=== PATIENT | male | born 1945 | race Caucasian/White ===

== ENCOUNTER 2016-06-09 11:54 | Emergency (ER) | payer OTHER ==
[2016-03-15 16:21] VITALS: Ht 172.7 cm; Wt 96.2 kg
[~2016-06-09] VITALS: Ht 172.7 cm; Wt 96.2 kg
[~2016-06-09 11:54] MED LIST: BENA20TA75 PO; CAR1 PO; CYCL-10 PO; DEXA4TAB PO; IBUP-1480 PO; LENA2.5C PO; LISI-209 PO; LISI10TA5 PO; PRO40 PO; WARF1TAB2 PO
[2016-06-09 12:00] VITALS: BP 123/71; PULSE 76; RESP 18; TEMP 98; O2SAT 99
--- NOTE | 2016-06-09 12:00 | NUR ---
Placed in room 07. Placed on monitoring specialist, blood pressure machine and pulse oximeter. To gown for exam. Side rails up. Report given to ABEL Londono.
--- NOTE | 2016-06-09 12:29 | NUR ---
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 no neuro-deficit noted.
[2016-06-09] MEDS ORDERED: ACETAMINOPHEN 500 MG TABLET PO ONE (12:30)
[2016-06-09] MEDS ORDERED: NACL 0.9% 1,000 ML IV ONE (12:30)
[2016-06-09] MEDS ORDERED: PROCHLORPERAZINE EDISYLATE 10 MG/2 ML VIAL IVP ONE (12:30)
--- NOTE | 2016-06-09 12:32 | NUR ---
# 20 gauge angiocath placed to . Use of asceptic technique. Opsite placed over site. Blood return noted. Blood for lab drawn from site. Flushed with 10 cc of normal saline. No evidence of infiltration noted. Patient tolerated well.
--- NOTE | 2016-06-09 12:34 | NUR ---
MEHREEN Monk at bedside examining patient.
--- NOTE | 2016-06-09 12:55 | NUR ---
medicated per MD's order, continue monitor.
[2016-06-09 13:15] LABS: BASOPHILS # (AUTO) 0.1 K/uL (0.0-0.2); BASOPHILS % (AUTO) 1.5 % (0.0-2.0); EOSINOPHILS # (AUTO) 0.1 K/uL (0.0-0.4); HEMATOCRIT 37.8 % (36-54); HEMOGLOBIN 12.9 g/dL (14.0-18.0); LYMPHOCYTES % (AUTO) 21.1 % (20.5-51.5); MEAN CORPUSCULAR HEMOGLOBIN 31 pg (27-31); MEAN CORPUSCULAR HGB CONC 34 % (32-36); MEAN CORPUSCULAR VOLUME 90 fL (79.0-98.0); MONOCYTES # (AUTO) 0.6 K/uL (0.0-1.0); MONOCYTES % (AUTO) 12.3 % (1.7-9.3); NEUTROPHILS # (AUTO) 3.1 K/uL (1.8-7.7); NEUTROPHILS % (AUTO) 63.1 % (40.0-70.0); PLATELET COUNT (AUTO) 220 K/uL (130-430); RED BLOOD CELL COUNT(AUTO) 4.19 MIL/uL (4.2-6.2); RED CELL DISTRIBUTION WIDTH 14.5 % (9.0-15.0); WHITE BLOOD COUNT (AUTO) 4.9 K/uL (4.8-10.8)
[2016-06-09 13:28] LABS: ANION GAP 6 (5-15); CHLORIDE 102 mmol/L (98-107); CREATININE 1.16 mg/dL (0.55-1.30); GLUCOSE 129 mg/dL (70-99); POTASSIUM 3.4 mmol/L (3.5-5.1); SODIUM SERUM 138 mmol/L (136-145); UREA NITROGEN, BLOOD 19 mg/dL (8-21)
[2016-06-09 13:33] LABS: ALANINE AMINOTRANSFERASE 30 U/L (12-78); ALBUMIN 3.6 g/dL (3.4-4.8); ASPARTATE AMINOTRANSFERASE 16 U/L (10-37); TOTAL PROTEIN, SERUM 6.7 g/dL (6.4-8.3)
[2016-06-09 13:45] LABS: PROTHROMBIN TIME 10.9 SECS (9.5-12.5)
--- NOTE | 2016-06-09 13:53 | NUR ---
sleeping in bed,no distress
--- NOTE | 2016-06-09 14:55 | NUR ---
transported to ct scan of head via [facility]
--- NOTE | 2016-06-09 15:07 | NUR ---
return back from ct scan.denies any pain and discort.
[2016-06-09] MEDS ORDERED: MECLIZINE HCL 25 MG TABLET (ANITVERT) PO ONE (15:30)
[2016-06-09 16:34] VITALS: BP 113/53; PULSE 78; RESP 20; TEMP 98.2; O2SAT 100
--- NOTE | 2016-06-09 16:34 | NUR ---
Patient given written and verbal discharge instructions and verbalizes understanding. ER MD discussed with patient the results and treatment provided. Patient in stable condition. ID arm band removed. IV catheter removed intact and dressing applied, no active bleeding. Rx of Meclizine and Zofran given. Patient educated on pain management and to follow up with PMD. Pain Scale 0/10. Opportunity for questions provided and answered.
== END 2016-06-09 16:34 | disposition home or self-care (01) ==
LOC: SED 11:54
DX: G43.909 Migraine, unspecified, not intractable, without status migrainosus (principal); I10 Essential (primary) hypertension; C41.4 Malignant neoplasm of pelvic bones, sacrum and coccyx
CPT/HCPCS: 36415; 70450; 71010; 80053; 84484; 85025; 85610; 85730; 93005; 96361; 96374; 99285; J0780; J7030; J8597

== ENCOUNTER → 2016-09-15 | Outpatient (CLI) | payer OTHER ==
[~2016-09-15] MED LIST changes: -BENA20TA75 PO; -CAR1 PO; -IBUP-1480 PO; -LISI-209 PO; -WARF1TAB2 PO
== END | disposition home or self-care (01) ==
LOC: SRD 08:52
PROVIDERS: ATTEND Internal Medicine Hospice and Palliative Medicine
DX: C90.00 Multiple myeloma not having achieved remission (principal); C79.51 Secondary malignant neoplasm of bone; I26.99 Other pulmonary embolism without acute cor pulmonale; I70.90 Unspecified atherosclerosis
CPT/HCPCS: 77075

== ENCOUNTER 2017-12-16 13:44 | Outpatient (CLI) | payer OTHER | END 2017-12-16 18:11 | disposition home or self-care (01) | LOC: SRD 13:44 | PROVIDERS: ATTEND Internal Medicine Hospice and Palliative Medicine | DX: I70.90 Unspecified atherosclerosis (principal); C90.00 Multiple myeloma not having achieved remission; M19.90 Unspecified osteoarthritis, unspecified site; I10 Essential (primary) hypertension; K21.9 Gastro-esophageal reflux disease without esophagitis | CPT/HCPCS: 77075 ==

== ENCOUNTER 2018-01-25 11:15 | Inpatient (IN) | payer OTHER ==
[~2018-01-25] VITALS: Ht 172.7 cm; Wt 97.1 kg
--- NOTE | 2018-01-25 11:18 | NUR ---
Placed in room 05 . 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 To gown for exam. Side rails up.
[2018-01-25 11:19] VITALS: BP_SYST 168
--- NOTE | 2018-01-25 11:24 | NUR ---
PT AAOX4, ABLE TO VERBALIZE NEEDS. PT C/O CHEST PAIN x1 WEEK. PT ALSO STATES HE CHECKED HIS BP AT HOME AND SBP WAS IN 70s. PT C/O BLURRED VISION AND MILD HEADACHE, STATES IT ALWAYS HAPPENS WHEN HIS BP IS HIGH. PT DENIES SHORTNESS OF BREATH, N/V.
[2018-01-25] MEDS ORDERED: ASPIRIN 81 MG TAB.CHEW PO ONE (11:30)
--- NOTE | 2018-01-25 11:30 | NUR ---
DR WILSON AT BEDSIDE FOR EVALUATION
--- NOTE | 2018-01-25 11:40 | NUR ---
PT REFUSED ASPIRIN. DR WILSON NOTIFIED.
[2018-01-25 11:54] LABS: BASOPHILS # (AUTO) 0.1 K/uL (0.0-0.2); BASOPHILS % (AUTO) 1.7 % (0.0-2.0); EOSINOPHILS # (AUTO) 0.1 K/uL (0.0-0.4); EOSINOPHILS % (AUTO) 1.1 % (0.0-4.0); HEMOGLOBIN 12.8 g/dL (14.0-18.0); LYMPHOCYTES # (AUTO) 1.2 K/uL (1.0-5.5); LYMPHOCYTES % (AUTO) 22.4 % (20.5-51.5); MEAN CORPUSCULAR HEMOGLOBIN 30 pg (27-31); MEAN CORPUSCULAR HGB CONC 34 % (32-36); MEAN CORPUSCULAR VOLUME 90 fL (79.0-98.0); MONOCYTES # (AUTO) 0.5 K/uL (0.0-1.0); MONOCYTES % (AUTO) 10.1 % (1.7-9.3); NEUTROPHILS # (AUTO) 3.3 K/uL (1.8-7.7); NEUTROPHILS % (AUTO) 64.7 % (40.0-70.0); PLATELET COUNT (AUTO) 199 K/uL (130-430); RED BLOOD CELL COUNT(AUTO) 4.21 MIL/uL (4.2-6.2); RED CELL DISTRIBUTION WIDTH 13.2 % (9.0-15.0)
[2018-01-25 12:04] LABS: WHITE BLOOD COUNT (AUTO) 5.2 K/uL (4.8-10.8)
[2018-01-25 12:07] LABS: ANION GAP 9 (5-15); CALCIUM 9.4 mg/dL (8.4-11.0); CHLORIDE 107 mmol/L (98-107); GLUCOSE 107 mg/dL (70-99); POTASSIUM 3.4 mmol/L (3.5-5.1); SODIUM SERUM 142 mmol/L (136-145); UREA NITROGEN, BLOOD 18 mg/dL (8-21)
[2018-01-25 12:08] LABS: ALANINE AMINOTRANSFERASE 34 U/L (12-78); ALBUMIN 3.2 g/dL (3.4-4.8); ASPARTATE AMINOTRANSFERASE 19 U/L (10-37); TOTAL BILIRUBIN 0.6 mg/dL (0.0-1.0)
[2018-01-25] MEDS ORDERED: NS 500 ML IV ONE (12:30)
[2018-01-25] MEDS ORDERED: IOHEXOL 350 mgI/mL, 150 ML INFUS..BTL IV ONE (12:44)
[2018-01-25] MEDS ORDERED: IOHEXOL 100 ML IV ONE (13:41)
[2018-01-25] MEDS ORDERED: POTASSIUM CHLORIDE 20 MEQ TAB.PRT.SR PO ONE (14:00)
[2018-01-25] MEDS ORDERED: HYDR-2470 PO (15:28)
[2018-01-25] MEDS ORDERED: GLIP2.5T3 PO (15:28)
[2018-01-25] MEDS ORDERED: RIVA20TA PO (15:28)
--- NOTE | 2018-01-25 15:28 | NUR ---
Medication reconciliation completed with information provided by PT. Any prior medication reconciliation on file was reviewed and corrected.
[2018-01-25] MEDS ORDERED: ALBUTEROL SULFATE 0.083% 2.5 MG/3 ML VIAL.NEB INH PRN (16:15)
[2018-01-25] MEDS ORDERED: ONDANSETRON HCL 4 MG/2 ML VIAL IVP PRN (16:15)
[2018-01-25] MEDS ORDERED: ACETAMINOPHEN 325 MG TABLET PO PRN (16:15)
[2018-01-25] MEDS ORDERED: *LOVENOX 1MG/KG Q12H/PHARMACY XX ONE (16:15)
[2018-01-25] MEDS ORDERED: KETOROLAC TROMETHAMINE 15 MG VIAL IVP PRN (16:15)
--- NOTE | 2018-01-25 16:56 | NUR ---
Admission: Received from ER on a gurney with the diagnosis of Pulmonary Emboli. Alert and oriented, Ambulatory. Oriented to room routine. Call light within reach.
--- NOTE | 2018-01-25 17:06 | NUR ---
Patient will be admitted to care of DR WOODS. Admitted to TELE unit. Will go to room 130A. Belongings list completed. Summary report printed. Report will be given at bedside.
[2018-01-25 17:08] VITALS: BP_SYST 154
--- NOTE | 2018-01-25 17:15 | NUR ---
Pulmo consult called: for Dr. Hurley, regarding PE, ordered by , spoke with
--- NOTE | 2018-01-25 17:15 | NUR ---
RN OPENING NOTE PT SITTING UP IN BED, A/O X 4, SPEAKS AUSTRIAN AND IS COOPERATIVE. VSS ON ROOM AIR, COMPLAINING OF HEADACHE 3/10 AND STATED THIS LEVEL OF PAIN IS HIS BASELINE. LAC ANGIOCATH PATENT, DRESSING DRY AND INTACT. PT EDUCATED ON UNIT SAFETY AND DEMONSTRATED ABILITY TO USE CALL LIGHT. BED IN LOWEST POSITION AND CALL LIGHT IS WITHIN REACH.
[2018-01-25 17:25] VITALS: BP_SYST 154
[2018-01-25 17:27] VITALS: BP_SYST 154
[2018-01-25] MEDS: ENOXAPARIN SODIUM 100 MG/ML SYRINGE SUBCUT SCH (18:50)
--- NOTE | 2018-01-25 19:30 | NUR ---
ENDORSEMENT REPORT ENDORSED TO PM NURSE AT BEDSIDE.
[2018-01-25 20:00] VITALS: BP_SYST 149
--- NOTE | 2018-01-25 20:00 | NUR ---
Initial Notes Received patient resting in bed, awake, alert, oriented. Patient denies any acute distress or pain at this time. Vital signs stable. Breathing is even and unlabored. IV site patent/clean/dry. Educated patient regarding use of call light for assistance and fall precautions, patient verbalized understanding. Call light in hand, fall precautions in place.
[2018-01-25] MEDS ORDERED: PANTOPRAZOLE SODIUM 40 MG TAB PO SCH (22:00)
--- NOTE | 2018-01-25 22:15 | NUR ---
Nursing Notes / MD Communication Patient resting in bed, awake. Patient denies any acute distress or pain at this time. Breathing is even and unlabored. Needs addressed. Call light in hand, fall precautions in place. Patient noted he usually takes Protonix twice a day, and requesting a dose for tonight for heartburn symptoms. Notified patient that Protonix has been ordered once a day at 40mg. Patient called his to verify his home medication with nurse, states he takes 20mg twice a day and that it works better for him this way. Dr. Barahona called, covering for Dr. Bosch, orders received to change Protonix to 20mg twice a day. Received call from pharmacist stating that order cannot be processed since 20mg not available, and 40mg tablet should not be split. Dr. Barahona notified, orders changed to Pepcid 20mg BID.
--- NOTE | 2018-01-26 | NUR ---
Nursing Notes Patient resting in bed, awake. Patient denies any acute distress a this time. Breathing is even and unlabored. Patient states he has a headache, refusing offer for ordered pain medication at this time. Needs addressed. Will continue to monitor.
[2018-01-26 00:55] VITALS: BP_SYST 145
--- NOTE | 2018-01-26 02:30 | NUR ---
Nursing Notes Patient resting in bed with eyes closed, at bedside. No acute distress noted, breathing is even and unlabored. IV site patent/clean/dry. Call light in hand, fall precautions in place. Will continue to monitor. Addendum: 01/26/18 at 0325 by Anthony Reeves RN ERROR, No visitors in room.
[2018-01-26 04:04] LABS: BASOPHILS # (AUTO) 0.1 K/uL (0.0-0.2); EOSINOPHILS # (AUTO) 0.1 K/uL (0.0-0.4); HEMOGLOBIN 12.3 g/dL (14.0-18.0); LYMPHOCYTES # (AUTO) 1.1 K/uL (1.0-5.5); LYMPHOCYTES % (AUTO) 18.9 % (20.5-51.5); MEAN CORPUSCULAR HEMOGLOBIN 30 pg (27-31); MEAN CORPUSCULAR HGB CONC 33 % (32-36); MEAN CORPUSCULAR VOLUME 91 fL (79.0-98.0); MONOCYTES # (AUTO) 0.5 K/uL (0.0-1.0); NEUTROPHILS # (AUTO) 4.1 K/uL (1.8-7.7); NEUTROPHILS % (AUTO) 69.1 % (40.0-70.0); PLATELET COUNT (AUTO) 201 K/uL (130-430); RED BLOOD CELL COUNT(AUTO) 4.06 MIL/uL (4.2-6.2); RED CELL DISTRIBUTION WIDTH 13.4 % (9.0-15.0); WHITE BLOOD COUNT (AUTO) 5.9 K/uL (4.8-10.8)
--- NOTE | 2018-01-26 04:05 | NUR ---
Nursing Notes Patient resting in bed with eyes closed. No distress noted. Breathing is even and unlabored. Fall precautions in place, will continue to monitor.
[2018-01-26 04:09] LABS: ANION GAP 4 (5-15); CALCIUM 9.1 mg/dL (8.4-11.0); CHLORIDE 105 mmol/L (98-107); CREATININE 1.23 mg/dL (0.55-1.30); GLUCOSE 107 mg/dL (70-99); SODIUM SERUM 139 mmol/L (136-145); UREA NITROGEN, BLOOD 15 mg/dL (8-21)
[2018-01-26 04:15] LABS: ALANINE AMINOTRANSFERASE 31 U/L (12-78); ALBUMIN 2.9 g/dL (3.4-4.8); ASPARTATE AMINOTRANSFERASE 21 U/L (10-37); TOTAL BILIRUBIN 0.9 mg/dL (0.0-1.0)
[2018-01-26] MEDS: ENOXAPARIN SODIUM 100 MG/ML SYRINGE SUBCUT SCH (05:53)
--- NOTE | 2018-01-26 06:31 | NUR ---
Closing Notes Patient resting in bed with eyes closed, easily aroused. Patient denies any acute distress or pain at this time. Breathing is even and unlabored on room air. IV site patent/clean/dry, no S/S infection/infiltration noted. Needs addressed throughout shift. Call light in hand, fall precautions in place. Will continue to monitor for changes and safety, and endorse all patient care/needs to oncoming nurse.
[2018-01-26] MEDS ORDERED: PANTOPRAZOLE SODIUM 40 MG TAB PO SCH ×2 (07:00→09:00)
[2018-01-26 08:00] VITALS: BP_SYST 156
--- NOTE | 2018-01-26 08:00 | NUR ---
initial notes rec pt awake alert with ivl l ac. no infiltration noted. resp easy and unlabored. no acute distress noted. bed in lowest position and side rails up and locked.call light within reached and knows when to call for assistance. seen by dr brenda morales at bedside.will continue to monitor patient.
[2018-01-26] MEDS: ATENOLOL 25 MG TABLET(TENORMIN) PO SCH (08:40)
[2018-01-26] MEDS: LISINOPRIL 10 MG TABLET (PRINIVIL) PO SCH (08:41)
[2018-01-26] MEDS ORDERED: FAMOTIDINE 20 MG TABLET PO SCH (09:00)
[2018-01-26] MEDS ORDERED: APIXABAN 2.5 MG TABLET PO SCH (09:00)
--- NOTE | 2018-01-26 10:00 | NUR ---
rounds due meds were given and floresita well. seen by dr corral at bedside.
--- NOTE | 2018-01-26 12:00 | NUR ---
rounds hob elevated and resting comfortably. no hypo hyperglycemic reaction noted. call light within reached.
[2018-01-26 12:55] VITALS: BP_SYST 118
--- NOTE | 2018-01-26 14:00 | NUR ---
rounds resting comfortably , denies pain . call light within reached.
--- NOTE | 2018-01-26 16:00 | NUR ---
rounds rounds made and resting comfortably. no acute distress. call light within reached.
[2018-01-26 16:55] VITALS: BP_SYST 110
[2018-01-26] MEDS ORDERED: COMMUNICATION ORDER XX ONE (17:15)
--- NOTE | 2018-01-26 18:08 | NUR ---
rounds no hypo hyperglycemic reaction noted. due meds wants it changed for 1999 and requested to pharmacy. no sob noted.
[2018-01-26 20:00] VITALS: BP_SYST 129
--- NOTE | 2018-01-26 20:00 | NUR ---
Initial Notes Received patient resting in bed, awake, alert, oriented. Patient denies any acute distress or pain at this time. Vital signs stable. Breathing is even and unlabored. IV site patent/clean/dry. Needs addressed. Educated patient regarding use of call light for assistance and fall precautions, patient verbalized understanding. Call light in hand, fall precautions in place.
[2018-01-26] MEDS: FAMOTIDINE 20 MG TABLET PO SCH (20:06)
[2018-01-26] MEDS: APIXABAN 2.5 MG TABLET PO SCH (20:07)
--- NOTE | 2018-01-26 22:00 | NUR ---
Nursing Notes Patient resting in bed bed, awake. Patient denies any acute distress, pain, or needs at this time. Breathing is even and unlabored. Call light in hand, fall precautions in place.
--- NOTE | 2018-01-27 00:07 | NUR ---
Nursing Notes Patient resting in bed with eyes closed, easily aroused upon nurse entering room. Patient denies any acute distress or pain at this time. Breathing is even and unlabored. Denies any needs. Call light in hand, fall precautions in place.
[2018-01-27 00:32] VITALS: BP_SYST 96
--- NOTE | 2018-01-27 02:07 | NUR ---
Nursing Notes Patient resting in bed with eyes closed. No acute distress noted, breathing is even and unlabored. Call light in hand, fall precautions in place. Will continue to monitor for changes and safety.
--- NOTE | 2018-01-27 04:30 | NUR ---
Nursing Notes Patient remains resting in bed with eyes closed. No distress noted. Breathing is even and unlabored. Call light in hand, will continue to monitor.
[2018-01-27] MEDS: FAMOTIDINE 20 MG TABLET PO SCH (06:19)
--- NOTE | 2018-01-27 06:37 | NUR ---
Closing Notes Patient resting in bed, awake. Patient denies any acute distress or pain at this time. Breathing is even and unlabored. IV site patent/clean/dry, no S/S infection/infiltration noted. Needs addressed throughout shift. Call light in hand, fall precautions in place. Will continue to monitor for changes and safety, and endorse all patient care/needs to oncoming nurse.
[2018-01-27 07:05] LABS: ALANINE AMINOTRANSFERASE 28 U/L (12-78); ALBUMIN 2.7 g/dL (3.4-4.8); ANION GAP 5 (5-15); ASPARTATE AMINOTRANSFERASE 15 U/L (10-37); CALCIUM 9.3 mg/dL (8.4-11.0); CHLORIDE 105 mmol/L (98-107); CREATININE 1.18 mg/dL (0.55-1.30); GLUCOSE 112 mg/dL (70-99); SODIUM SERUM 139 mmol/L (136-145); TOTAL BILIRUBIN 0.7 mg/dL (0.0-1.0); UREA NITROGEN, BLOOD 16 mg/dL (8-21)
[2018-01-27 08:00] VITALS: BP_SYST 95
[2018-01-27] MEDS: LISINOPRIL 10 MG TABLET (PRINIVIL) PO SCH (09:00)
[2018-01-27] MEDS: ATENOLOL 25 MG TABLET(TENORMIN) PO SCH (09:00)
[2018-01-27] MEDS: APIXABAN 2.5 MG TABLET PO SCH (09:21)
--- NOTE | 2018-01-27 10:00 | NUR ---
rounds seen by dr corral and dr mendes and with order. ambulates to the br with steady gait.
[2018-01-27] MEDS ORDERED: APIX5TAB4 PO (10:35)
[2018-01-27 11:33] VITALS: BP_SYST 116
[2018-01-27 12:30] VITALS: BP_SYST 116
--- NOTE | 2018-01-27 12:38 | NUR ---
initial notes rec patient awake alert hob slightly elevated icl on the l ac intact. no infiltration noted. resp easy and unlabored , no sob noted. fall/safety precaution reinforced. bed in low position and side rails up and locked. call light within reached. Addendum: 01/27/18 at 1245 by Charito Holliday RN [id number] initial notes
--- NOTE | 2018-01-27 14:20 | NUR ---
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 no sob noted. stated wiil have an appt with dr bolivar bryant on . refused to use the wheelchair and ambulated. no sob noted. needs attended.
--- NOTE | 2018-01-31 11:40 | NUR ---
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 Patient stated he is improving but not as quickly as he would like. He is taking the Eliquis and has a follow up appointment today with his hemo oncologist, Dr Donovan. Discussed at length patient's quest to get a second oncology opinion out of network. Discussed [facility]. Patient will also attend follow up appointments with welt beater and PCP. He does not check his sugar as often as needed because his blood glucose monitor is painful. He stated his insurance will not allow him to get a better monitor. Discussed the possibility of changing insurance. Patient has looked into it but has not found one that he would like. Patient was happy with his care at [facility]. No further questions or concerns.
== END 2018-01-27 14:00 | disposition home or self-care (01) | DRG 176 ==
LOC: SED 11:15 → STU 16:13
PROVIDERS: ADMIT Internal Medicine; ATTEND Internal Medicine
DX: I26.99 Other pulmonary embolism without acute cor pulmonale (principal); J98.11 Atelectasis; E11.9 Type 2 diabetes mellitus without complications; F03.90 Unspecified dementia, unspecified severity, without behavioral disturbance, psychotic disturbance, mood disturbance, and anxiety; I10 Essential (primary) hypertension; M19.90 Unspecified osteoarthritis, unspecified site; G89.29 Other chronic pain; K21.9 Gastro-esophageal reflux disease without esophagitis; Z79.01 Long term (current) use of anticoagulants; Z86.718 Personal history of other venous thrombosis and embolism; Z86.73 Personal history of transient ischemic attack (TIA), and cerebral infarction without residual deficits; Z95.0 Presence of cardiac pacemaker; Z79.899 Other long term (current) drug therapy; Z85.79 Personal history of other malignant neoplasms of lymphoid, hematopoietic and related tissues; Z92.21 Personal history of antineoplastic chemotherapy; Z82.61 Family history of arthritis; Z81.8 Family history of other mental and behavioral disorders; Z90.79 Acquired absence of other genital organ(s)
CPT/HCPCS: 36415; 36600; 70450-TC; 71045; 71275; 80053; 82803-TC; 82962; 84484; 85025; 93005; 93306; 93970; 94760; 96360; 99291; J1650; J7040; Q9967

== ENCOUNTER 2018-09-14 11:51 | Inpatient (IN) | payer OTHER ==
[~2018-09-14] VITALS: Ht 172.7 cm; Wt 97.1 kg
[~2018-09-14 11:51] MED LIST changes: +APIX5TAB4 PO; -CYCL-10 PO; -DEXA4TAB PO; +GLIP2.5T3 PO; +HYDR-500 PO; -LISI10TA5 PO
[2018-09-14 11:55] VITALS: BP_SYST 123
[2018-09-14 13:00] LABS: EOSINOPHILS # (AUTO) 0.2 K/uL (0.0-0.4); EOSINOPHILS % (AUTO) 5.5 % (0.0-4.0); HEMATOCRIT 36.4 % (36-54); LYMPHOCYTES # (AUTO) 1.2 K/uL (1.0-5.5); LYMPHOCYTES % (AUTO) 33.1 % (20.5-51.5); MEAN CORPUSCULAR HEMOGLOBIN 31 pg (27-31); MEAN CORPUSCULAR HGB CONC 33 % (32-36); MEAN CORPUSCULAR VOLUME 93 fL (79.0-98.0); MONOCYTES # (AUTO) 0.5 K/uL (0.0-1.0); MONOCYTES % (AUTO) 14.2 % (1.7-9.3); NEUTROPHILS # (AUTO) 1.7 K/uL (1.8-7.7); NEUTROPHILS % (AUTO) 46.2 % (40.0-70.0); PLATELET COUNT (AUTO) 198 K/uL (130-430); RED BLOOD CELL COUNT(AUTO) 3.93 MIL/uL (4.2-6.2); RED CELL DISTRIBUTION WIDTH 16.2 % (9.0-15.0); WHITE BLOOD COUNT (AUTO) 3.7 K/uL (4.8-10.8)
[2018-09-14 13:15] LABS: ANION GAP 7 (5-15); CALCIUM 9.7 mg/dL (8.4-11.0); CHLORIDE 104 mmol/L (98-107); CREATININE 1.19 mg/dL (0.55-1.30); GLUCOSE 207 mg/dL (70-99); POTASSIUM 3.6 mmol/L (3.5-5.1); SODIUM SERUM 139 mmol/L (136-145); UREA NITROGEN, BLOOD 11 mg/dL (8-21)
[2018-09-14 13:20] LABS: ALANINE AMINOTRANSFERASE 32 U/L (12-78); ALBUMIN 3.3 g/dL (3.4-4.8); ASPARTATE AMINOTRANSFERASE 24 U/L (10-37); PROTHROMBIN TIME 10.3 SECS (9.5-12.5); TOTAL BILIRUBIN 0.7 mg/dL (0.0-1.0)
[2018-09-14] MEDS ORDERED: DEC4 PO (14:51)
[2018-09-14] MEDS ORDERED: CYCL10TA9 PO (14:51)
[2018-09-14] MEDS ORDERED: POMA1CAP PO (14:51)
[2018-09-14] MEDS ORDERED: IOHEXOL 350 mgI/mL, 150 ML INFUS..BTL IV ONE (15:47)
[2018-09-14 18:17] VITALS: BP_SYST 140
[2018-09-14] MEDS ORDERED: PANT20TA2 PO (18:36)
[2018-09-14] MEDS ORDERED: VIS25 PO (18:36)
[2018-09-14 19:10] VITALS: BP_SYST 145
[2018-09-14] MEDS ORDERED: HYDROcodone/ACETAMIN 5-325 MG TAB (NORCO/ VICODIN) PO PRN (20:30)
[2018-09-14] MEDS ORDERED: ALBUTEROL SULFATE 0.083% 2.5 MG/3 ML VIAL.NEB INH PRN (20:30)
[2018-09-14] MEDS ORDERED: ACETAMINOPHEN 325 MG TABLET PO PRN (20:30)
[2018-09-14] MEDS ORDERED: CYCLOBENZAPRINE HCL 10 MG TABLET (FLEXERIL) PO PRN (20:30)
[2018-09-14] MEDS ORDERED: HYDROcodone/ACETAMIN 10-325 MG TAB PO PRN (20:30)
[2018-09-14] MEDS ORDERED: ONDANSETRON HCL 4 MG/2 ML VIAL IVP PRN (20:30)
[2018-09-14] MEDS: APIXABAN 2.5 MG TABLET PO SCH (21:22)
[2018-09-14] MEDS: INSULIN LISPRO SLIDING SCALE 100 UNITS/ML VIAL (humaLOG) SUBCUT PRN (21:27)
[2018-09-14 21:45] VITALS: BP_SYST 140
[2018-09-14] MEDS ORDERED: COMMUNICATION ORDER XX ONE (22:00)
[2018-09-14] MEDS ORDERED: PANTOPRAZOLE SODIUM 40 MG TAB PO ONE (22:15)
[2018-09-15 00:17] VITALS: BP_SYST 144
[2018-09-15 05:43] LABS: BASOPHILS % (AUTO) 1.1 % (0.0-2.0); EOSINOPHILS # (AUTO) 0.3 K/uL (0.0-0.4); EOSINOPHILS % (AUTO) 7.7 % (0.0-4.0); HEMATOCRIT 33.4 % (36-54); LYMPHOCYTES # (AUTO) 1.2 K/uL (1.0-5.5); LYMPHOCYTES % (AUTO) 30.8 % (20.5-51.5); MEAN CORPUSCULAR HEMOGLOBIN 31 pg (27-31); MEAN CORPUSCULAR HGB CONC 33 % (32-36); MEAN CORPUSCULAR VOLUME 93 fL (79.0-98.0); MONOCYTES # (AUTO) 0.5 K/uL (0.0-1.0); MONOCYTES % (AUTO) 13.4 % (1.7-9.3); NEUTROPHILS # (AUTO) 1.8 K/uL (1.8-7.7); PLATELET COUNT (AUTO) 179 K/uL (130-430); RED CELL DISTRIBUTION WIDTH 15.9 % (9.0-15.0); WHITE BLOOD COUNT (AUTO) 3.8 K/uL (4.8-10.8)
[2018-09-15] MEDS: INSULIN LISPRO SLIDING SCALE 100 UNITS/ML VIAL (humaLOG) SUBCUT PRN (06:24)
[2018-09-15] MEDS ORDERED: PANTOPRAZOLE SODIUM 40 MG TAB PO SCH (07:00)
[2018-09-15] MEDS ORDERED: glipiZIDE XL 2.5 MG/TAB (GLUCOTROL XL) PO SCH (08:00)
[2018-09-15] MEDS: APIXABAN 2.5 MG TABLET PO SCH (08:27)
[2018-09-15 09:11] LABS: ANION GAP 8 (5-15); CALCIUM 9.5 mg/dL (8.4-11.0); CHLORIDE 105 mmol/L (98-107); GLUCOSE 184 mg/dL (70-99); POTASSIUM 3.7 mmol/L (3.5-5.1); SODIUM SERUM 139 mmol/L (136-145); UREA NITROGEN, BLOOD 8 mg/dL (8-21)
[2018-09-15 09:36] LABS: ALANINE AMINOTRANSFERASE 28 U/L (12-78); ASPARTATE AMINOTRANSFERASE 22 U/L (10-37); TOTAL BILIRUBIN 1.1 mg/dL (0.0-1.0)
[2018-09-15 09:37] LABS: ALBUMIN 3.2 g/dL (3.4-4.8); CHOLESTEROL 144 mg/dL (<200); HDL CHOLESTEROL 27 mg/dL (>45); LDL CHOLESTEROL 84 mg/dL (<100); THYROID STIMULATING HORMONE 2.58 uIu/mL (0.34-4.82); TRIGLYCERIDES 239 mg/dL (30-150)
[2018-09-15] MEDS ORDERED: METOPROLOL SUCCINATE 25 MG TAB.SR.24H (TOPROL XL) PO ONE (12:15)
[2018-09-15 12:49] VITALS: BP_SYST 125
[2018-09-15 16:49] VITALS: BP_SYST 127
[2018-09-15 18:13] VITALS: BP_SYST 127
[2018-09-16] MEDS ORDERED: METOPROLOL SUCCINATE 25 MG TAB.SR.24H (TOPROL XL) PO SCH (09:00)
[2018-09-16] MEDS ORDERED: DECADRON 4 MG TABLET PO SCH (09:00)
== END 2018-09-15 20:42 | disposition home or self-care (01) | DRG 206 ==
LOC: SED 11:51 → STU 17:48
PROVIDERS: ADMIT Internal Medicine; ATTEND Internal Medicine
DX: M94.0 Chondrocostal junction syndrome [Tietze] (principal); R65.10 Systemic inflammatory response syndrome (SIRS) of non-infectious origin without acute organ dysfunction; I48.91 Unspecified atrial fibrillation; K21.9 Gastro-esophageal reflux disease without esophagitis; J44.9 Chronic obstructive pulmonary disease, unspecified; I10 Essential (primary) hypertension; F03.90 Unspecified dementia, unspecified severity, without behavioral disturbance, psychotic disturbance, mood disturbance, and anxiety; M19.90 Unspecified osteoarthritis, unspecified site; R07.89 Other chest pain; E11.9 Type 2 diabetes mellitus without complications; Z83.3 Family history of diabetes mellitus; Z86.711 Personal history of pulmonary embolism; Z92.21 Personal history of antineoplastic chemotherapy; Z85.79 Personal history of other malignant neoplasms of lymphoid, hematopoietic and related tissues; Z79.01 Long term (current) use of anticoagulants; Z79.899 Other long term (current) drug therapy; Z95.0 Presence of cardiac pacemaker; Z86.718 Personal history of other venous thrombosis and embolism
CPT/HCPCS: 36415; 36600; 71045; 71275; 80053; 80061; 82550-TC; 82803-TC; 82962; 83036; 84443-TC; 84484; 85025; 85379; 85610-TC; 85730-TC; 93005; 93306; 99285; G0378; Q9967

== ENCOUNTER 2018-12-28 08:04 | Emergency (ER) | payer OTHER ==
[~2018-12-28] VITALS: Ht 172.7 cm; Wt 97.1 kg
[~2018-12-28 08:04] MED LIST changes: +CYCL10TA9 PO; +DEC4 PO; -HYDR-500 PO; -LENA2.5C PO; +PANT20TA2 PO; +POMA1CAP PO; -PRO40 PO; +VIS25 PO
[2018-12-28 08:15] VITALS: BP_SYST 126
--- NOTE | 2018-12-28 08:15 | NUR ---
Patient to ER bed 5 to gown for evaluation. Side rails up.
--- NOTE | 2018-12-28 08:20 | NUR ---
Pt presents to ED c/o abd pain and rash. 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 Pt reports pain intermittent and exacerbates with med changes.
--- NOTE | 2018-12-28 08:36 | NUR ---
Patient transported to radiology via WC, accompanied by rad staff.
--- NOTE | 2018-12-28 08:49 | NUR ---
Returned from radiology, back to [facility].
--- NOTE | 2018-12-28 08:50 | NUR ---
EKG performed at by IGNAC[facility]. Physician given copy of EKG for review.
--- NOTE | 2018-12-28 09:27 | NUR ---
ER at bedside examining patient.
[2018-12-28 09:32] LABS: BILIRUBIN,URINE NEGATIVE (NEGATIVE); BLOOD, URINE NEGATIVE (NEGATIVE); CLARITY/URINE CLEAR (CLEAR); COLOR,URINE YELLOW (YELLOW); GLUCOSE,URINE NEGATIVE (NEGATIVE); KETONES,URINE NEGATIVE (NEGATIVE); LEUKOCYTE ESTERASE ,URINE NEGATIVE (NEGATIVE); NITRITE, URINE NEGATIVE (NEGATIVE); PH,URINE 5.5 (5.0-8.0); PROTEIN URINE 1+ (NEGATIVE); UROBILINOGEN,URINE 0.2 (0.2-1.0)
[2018-12-28 09:36] LABS: BACTERIA,URINE FEW /HPF (None Seen); RBC,URINE 0-3 /HPF (0-3); WBC,URINE 0-3 /HPF (0-3)
[2018-12-28 09:37] LABS: MUCUS,URINE 1+ /LPF (None Seen)
[2018-12-28 09:39] LABS: BASOPHILS # (AUTO) 0.1 K/uL (0.0-0.2); BASOPHILS % (AUTO) 1.2 % (0.0-2.0); EOSINOPHILS % (AUTO) 0.5 % (0.0-4.0); HEMATOCRIT 38.8 % (36-54); LYMPHOCYTES # (AUTO) 0.9 K/uL (1.0-5.5); LYMPHOCYTES % (AUTO) 19.9 % (20.5-51.5); MEAN CORPUSCULAR HEMOGLOBIN 31 pg (27-31); MEAN CORPUSCULAR HGB CONC 34 % (32-36); MEAN CORPUSCULAR VOLUME 93 fL (79.0-98.0); MONOCYTES # (AUTO) 0.5 K/uL (0.0-1.0); MONOCYTES % (AUTO) 11.4 % (1.7-9.3); NEUTROPHILS # (AUTO) 3.2 K/uL (1.8-7.7); PLATELET COUNT (AUTO) 142 K/uL (130-430); RED BLOOD CELL COUNT(AUTO) 4.18 MIL/uL (4.2-6.2); RED CELL DISTRIBUTION WIDTH 15.7 % (9.0-15.0); WHITE BLOOD COUNT (AUTO) 4.7 K/uL (4.8-10.8)
[2018-12-28] MEDS ORDERED: ONDANSETRON HCL 4 MG/2 ML VIAL IVP ONE (09:45)
[2018-12-28 09:46] LABS: INR 1.1 (0.80-1.20); PROTHROMBIN TIME 10.9 SECS (9.5-12.5)
[2018-12-28 09:56] LABS: ALANINE AMINOTRANSFERASE 35 U/L (12-78); ANION GAP 10 (5-15); ASPARTATE AMINOTRANSFERASE 44 U/L (10-37); CALCIUM 8.7 mg/dL (8.4-11.0); CHLORIDE 103 mmol/L (98-107); CREATININE 1.24 mg/dL (0.55-1.30); GLUCOSE 157 mg/dL (70-99); LIPASE 102 U/L (73-393); POTASSIUM 3.7 mmol/L (3.5-5.1); SODIUM SERUM 140 mmol/L (136-145); TOTAL BILIRUBIN 1.3 mg/dL (0.0-1.0); UREA NITROGEN, BLOOD 17 mg/dL (8-21)
--- NOTE | 2018-12-28 10:30 | NUR ---
Pt medicated tolerated well.
[2018-12-28] MEDS ORDERED: KETOROLAC TROMETHAMINE 30 MG VIAL IVP ONE (11:00)
[2018-12-28 11:52] VITALS: BP_SYST 126
--- NOTE | 2018-12-28 11:52 | NUR ---
Patient given written and verbal discharge instructions and verbalizes understanding. ER MD discussed with patient the results and treatment provided. Patient in stable condition. ID arm band removed. IV catheter removed intact and dressing applied, no active bleeding. Rx of acyclovir,norco,zofran given. Patient educated on pain management and to follow up with PMD. Pain Scale 2. Opportunity for questions provided and answered. Medication side effect fact sheet provided.
== END 2018-12-28 11:52 | disposition home or self-care (01) ==
LOC: SED 08:04
DX: B02.9 Zoster without complications (principal); R21 Rash and other nonspecific skin eruption; M19.90 Unspecified osteoarthritis, unspecified site; K21.9 Gastro-esophageal reflux disease without esophagitis; I10 Essential (primary) hypertension; F03.90 Unspecified dementia, unspecified severity, without behavioral disturbance, psychotic disturbance, mood disturbance, and anxiety; J44.9 Chronic obstructive pulmonary disease, unspecified; Z95.0 Presence of cardiac pacemaker; Z79.899 Other long term (current) drug therapy
CPT/HCPCS: 36415; 71045; 74176; 80053; 81000; 82962; 83605; 83690; 85025; 85610; 87040; 93005; 96374; 96375; 99284; J1885; J2405

== ENCOUNTER 2019-01-27 15:23 | Inpatient (IN) | payer OTHER ==
[~2019-01-27] VITALS: Ht 172.7 cm; Wt 97.1 kg
[2019-01-27 15:35] VITALS: BP_SYST 146
[2019-01-27] MEDS ORDERED: NACL 0.9% 1,000 ML IV ONE (16:45)
[2019-01-27] MEDS ORDERED: GABAPENTIN 100 MG CAPSULE PO ONE (16:45)
[2019-01-27 17:49] LABS: EOSINOPHILS # (AUTO) 0.2 K/uL (0.0-0.4); HEMOGLOBIN 12.7 g/dL (14.0-18.0); MEAN CORPUSCULAR VOLUME 93 fL (79.0-98.0); MONOCYTES # (AUTO) 0.6 K/uL (0.0-1.0); NEUTROPHILS % (AUTO) 48.1 % (40.0-70.0); PLATELET COUNT (AUTO) 214 K/uL (130-430)
[2019-01-27 18:04] LABS: BASOPHILS % (AUTO) 0.9 % (0.0-2.0); EOSINOPHILS % (AUTO) 5.1 % (0.0-4.0); HEMATOCRIT 37.7 % (36-54); LYMPHOCYTES # (AUTO) 1.6 K/uL (1.0-5.5); LYMPHOCYTES % (AUTO) 33.7 % (20.5-51.5); MEAN CORPUSCULAR HEMOGLOBIN 31 pg (27-31); MEAN CORPUSCULAR HGB CONC 34 % (32-36); MONOCYTES % (AUTO) 12.2 % (1.7-9.3); NEUTROPHILS # (AUTO) 2.3 K/uL (1.8-7.7); RED BLOOD CELL COUNT(AUTO) 4.07 MIL/uL (4.2-6.2); RED CELL DISTRIBUTION WIDTH 15.3 % (9.0-15.0); WHITE BLOOD COUNT (AUTO) 4.8 K/uL (4.8-10.8)
[2019-01-27 18:07] LABS: ANION GAP 8 (5-15); CALCIUM 9.8 mg/dL (8.4-11.0); CHLORIDE 103 mmol/L (98-107); CREATININE 1.42 mg/dL (0.55-1.30); GLUCOSE 114 mg/dL (70-99); POTASSIUM 3.8 mmol/L (3.5-5.1); SODIUM SERUM 141 mmol/L (136-145); UREA NITROGEN, BLOOD 12 mg/dL (8-21)
[2019-01-27 18:12] LABS: ALANINE AMINOTRANSFERASE 47 U/L (12-78); ALBUMIN 3.9 g/dL (3.4-4.8); ASPARTATE AMINOTRANSFERASE 32 U/L (10-37); TOTAL BILIRUBIN 0.7 mg/dL (0.0-1.0)
[2019-01-27] MEDS ORDERED: ALBUTEROL SULFATE 0.083% 2.5 MG/3 ML VIAL.NEB INH PRN (22:00)
[2019-01-27] MEDS ORDERED: HYDROcodone/ACETAMIN 10-325 MG TAB PO PRN (22:00)
[2019-01-27] MEDS ORDERED: ONDANSETRON HCL 4 MG/2 ML VIAL IVP PRN (22:00)
[2019-01-27] MEDS ORDERED: ACETAMINOPHEN 325 MG TABLET PO PRN (22:00)
[2019-01-27] MEDS ORDERED: HYDROcodone/ACETAMIN 5-325 MG TAB (NORCO/ VICODIN) PO PRN (22:00)
[2019-01-27] MEDS ORDERED: DOCU-144 PO (22:09)
[2019-01-27] MEDS ORDERED: DEC4 PO (22:09)
[2019-01-27] MEDS ORDERED: METO25TA3 PO (22:09)
[2019-01-27] MEDS ORDERED: AMIO100T4 PO (22:09)
[2019-01-27] MEDS ORDERED: VIS25 PO (22:09)
[2019-01-27] MEDS ORDERED: FLUO15GE TP (22:09)
[2019-01-27] MEDS ORDERED: APIXABAN 2.5 MG TABLET PO SCH (22:15)
[2019-01-27 22:36] VITALS: BP_SYST 138
[2019-01-27 23:00] VITALS: BP_SYST 146
[2019-01-28] MEDS ORDERED: AMIODARONE HCL 200 MG TABLET PO SCH
[2019-01-28] MEDS ORDERED: METOPROLOL SUCCINATE 25 MG TAB.SR.24H (TOPROL XL) PO SCH
[2019-01-28] MEDS ORDERED: GABAPENTIN 100 MG CAPSULE PO SCH (00:45)
[2019-01-28] MEDS: NACL 0.9% 1,000 ML IV SCH ×2 (00:57→13:15)
[2019-01-28] MEDS ORDERED: APIXABAN 2.5 MG TABLET PO SCH (01:00)
[2019-01-28 06:16] LABS: BASOPHILS # (AUTO) 0.1 K/uL (0.0-0.2); EOSINOPHILS # (AUTO) 0.4 K/uL (0.0-0.4); EOSINOPHILS % (AUTO) 6.1 % (0.0-4.0); HEMATOCRIT 33.7 % (36-54); HEMOGLOBIN 11.7 g/dL (14.0-18.0); LYMPHOCYTES # (AUTO) 1.9 K/uL (1.0-5.5); LYMPHOCYTES % (AUTO) 32.2 % (20.5-51.5); MEAN CORPUSCULAR HEMOGLOBIN 32 pg (27-31); MEAN CORPUSCULAR HGB CONC 35 % (32-36); MEAN CORPUSCULAR VOLUME 92 fL (79.0-98.0); MONOCYTES # (AUTO) 0.8 K/uL (0.0-1.0); MONOCYTES % (AUTO) 13.1 % (1.7-9.3); NEUTROPHILS # (AUTO) 2.8 K/uL (1.8-7.7); NEUTROPHILS % (AUTO) 47.6 % (40.0-70.0); PLATELET COUNT (AUTO) 144 K/uL (130-430); RED BLOOD CELL COUNT(AUTO) 3.67 MIL/uL (4.2-6.2); RED CELL DISTRIBUTION WIDTH 15.4 % (9.0-15.0)
[2019-01-28 06:49] LABS: ALANINE AMINOTRANSFERASE 40 U/L (12-78); ANION GAP 7 (5-15); ASPARTATE AMINOTRANSFERASE 46 U/L (10-37); CALCIUM 8.4 mg/dL (8.4-11.0); CHLORIDE 107 mmol/L (98-107); CREATININE 1.21 mg/dL (0.55-1.30); GLUCOSE 98 mg/dL (70-99); POTASSIUM 4.1 mmol/L (3.5-5.1); SODIUM SERUM 138 mmol/L (136-145); TOTAL BILIRUBIN 0.7 mg/dL (0.0-1.0); UREA NITROGEN, BLOOD 10 mg/dL (8-21)
[2019-01-28 08:00] VITALS: BP_SYST 139
[2019-01-28] MEDS: APIXABAN 2.5 MG TABLET PO SCH ×2 (09:44→21:03)
[2019-01-28] MEDS: DOCUSATE SODIUM 100 MG CAPSULE PO SCH (09:45)
[2019-01-28] MEDS: glipiZIDE XL 2.5 MG/TAB (GLUCOTROL XL) PO SCH (09:45)
[2019-01-28] MEDS: ACYCLOVIR 400 MG TABLET PO SCH ×4 (09:46→23:01)
[2019-01-28] MEDS: CYCLOBENZAPRINE HCL 10 MG TABLET (FLEXERIL) PO SCH ×3 (09:46→20:57)
[2019-01-28] MEDS: GABAPENTIN 100 MG CAPSULE PO SCH ×2 (09:47→20:55)
[2019-01-28] MEDS: DECADRON 4 MG TABLET PO SCH (09:47)
[2019-01-28] MEDS: METOPROLOL SUCCINATE 25 MG TAB.SR.24H (TOPROL XL) PO SCH (09:48)
[2019-01-28] MEDS: AMIODARONE HCL 200 MG TABLET PO SCH (09:50)
[2019-01-28] MEDS: ACYCLOVIR OINTMENT Non-Formulay 30 GM TP SCH ×4 (10:00→22:00)
[2019-01-28 12:00] VITALS: BP_SYST 92
[2019-01-28 15:49] VITALS: BP_SYST 123
[2019-01-28] MEDS: INSULIN LISPRO SLIDING SCALE 100 UNITS/ML VIAL (humaLOG) SUBCUT PRN (17:31)
[2019-01-28 20:00] VITALS: BP_SYST 131
[2019-01-29 00:21] VITALS: BP_SYST 120
[2019-01-29] MEDS: ACYCLOVIR OINTMENT Non-Formulay 30 GM TP SCH ×5 (06:00→22:00)
[2019-01-29] MEDS: NACL 0.9% 1,000 ML IV SCH ×3 (06:11→21:15)
[2019-01-29] MEDS: INSULIN LISPRO SLIDING SCALE 100 UNITS/ML VIAL (humaLOG) SUBCUT PRN ×4 (06:14→21:32)
[2019-01-29] MEDS: ACYCLOVIR 400 MG TABLET PO SCH ×5 (06:15→21:20)
[2019-01-29 08:10] LABS: BASOPHILS % (AUTO) 0.1 % (0.0-2.0); HEMATOCRIT 32.6 % (36-54); HEMOGLOBIN 11.1 g/dL (14.0-18.0); LYMPHOCYTES # (AUTO) 0.9 K/uL (1.0-5.5); LYMPHOCYTES % (AUTO) 15.4 % (20.5-51.5); MEAN CORPUSCULAR HEMOGLOBIN 32 pg (27-31); MEAN CORPUSCULAR HGB CONC 34 % (32-36); MEAN CORPUSCULAR VOLUME 92 fL (79.0-98.0); MONOCYTES # (AUTO) 0.4 K/uL (0.0-1.0); NEUTROPHILS # (AUTO) 4.3 K/uL (1.8-7.7); NEUTROPHILS % (AUTO) 77.5 % (40.0-70.0); PLATELET COUNT (AUTO) 164 K/uL (130-430); RED BLOOD CELL COUNT(AUTO) 3.54 MIL/uL (4.2-6.2); RED CELL DISTRIBUTION WIDTH 15.2 % (9.0-15.0); WHITE BLOOD COUNT (AUTO) 5.6 K/uL (4.8-10.8)
[2019-01-29] MEDS: glipiZIDE XL 2.5 MG/TAB (GLUCOTROL XL) PO SCH (08:28)
[2019-01-29] MEDS: GABAPENTIN 100 MG CAPSULE PO SCH ×2 (08:29→21:19)
[2019-01-29] MEDS: DOCUSATE SODIUM 100 MG CAPSULE PO SCH (08:29)
[2019-01-29] MEDS: DECADRON 4 MG TABLET PO SCH (08:29)
[2019-01-29] MEDS: CYCLOBENZAPRINE HCL 10 MG TABLET (FLEXERIL) PO SCH ×3 (08:29→21:19)
[2019-01-29] MEDS: AMIODARONE HCL 200 MG TABLET PO SCH (08:29)
[2019-01-29] MEDS: METOPROLOL SUCCINATE 25 MG TAB.SR.24H (TOPROL XL) PO SCH (08:30)
[2019-01-29 08:32] LABS: ALANINE AMINOTRANSFERASE 33 U/L (12-78); ALBUMIN 3.2 g/dL (3.4-4.8); ANION GAP 8 (5-15); ASPARTATE AMINOTRANSFERASE 21 U/L (10-37); CALCIUM 8.9 mg/dL (8.4-11.0); CHLORIDE 107 mmol/L (98-107); CREATININE 1.15 mg/dL (0.55-1.30); GLUCOSE 158 mg/dL (70-99); POTASSIUM 4.1 mmol/L (3.5-5.1); SODIUM SERUM 141 mmol/L (136-145); TOTAL BILIRUBIN 0.5 mg/dL (0.0-1.0); UREA NITROGEN, BLOOD 14 mg/dL (8-21)
[2019-01-29] MEDS: APIXABAN 2.5 MG TABLET PO SCH ×2 (08:32→21:21)
[2019-01-29 08:38] VITALS: BP_SYST 110
[2019-01-29 11:26] VITALS: BP_SYST 145
[2019-01-29 15:37] VITALS: BP_SYST 142
[2019-01-29 20:00] VITALS: BP_SYST 132
[2019-01-30 00:22] VITALS: BP_SYST 140
[2019-01-30] MEDS: ACYCLOVIR OINTMENT Non-Formulay 30 GM TP SCH (06:00)
[2019-01-30] MEDS: ACYCLOVIR 400 MG TABLET PO SCH ×2 (06:15→09:29)
[2019-01-30] MEDS: INSULIN LISPRO SLIDING SCALE 100 UNITS/ML VIAL (humaLOG) SUBCUT PRN (06:21)
[2019-01-30 07:43] VITALS: BP_SYST 137
[2019-01-30 08:39] VITALS: BP_SYST 137
[2019-01-30] MEDS ORDERED: ACYC800T PO (09:01)
[2019-01-30] MEDS: DECADRON 4 MG TABLET PO SCH (09:29)
[2019-01-30] MEDS: DOCUSATE SODIUM 100 MG CAPSULE PO SCH (09:29)
[2019-01-30] MEDS: AMIODARONE HCL 200 MG TABLET PO SCH (09:29)
[2019-01-30] MEDS: GABAPENTIN 100 MG CAPSULE PO SCH (09:29)
[2019-01-30] MEDS: METOPROLOL SUCCINATE 25 MG TAB.SR.24H (TOPROL XL) PO SCH (09:30)
[2019-01-30] MEDS: glipiZIDE XL 2.5 MG/TAB (GLUCOTROL XL) PO SCH (09:30)
[2019-01-30] MEDS: CYCLOBENZAPRINE HCL 10 MG TABLET (FLEXERIL) PO SCH (09:30)
[2019-01-30] MEDS: APIXABAN 2.5 MG TABLET PO SCH (09:31)
[2019-01-30 12:26] VITALS: BP_SYST 143
[2019-02-03] MEDS ORDERED: DECADRON 4 MG TABLET PO SCH (09:00)
== END 2019-01-30 12:30 | disposition home or self-care (01) | DRG 840 ==
LOC: SED 15:23 → STU 19:54
PROVIDERS: ADMIT Internal Medicine; ATTEND Internal Medicine
DX: C90.00 Multiple myeloma not having achieved remission (principal); N17.0 Acute kidney failure with tubular necrosis; B02.9 Zoster without complications; I48.91 Unspecified atrial fibrillation; I10 Essential (primary) hypertension; E66.9 Obesity, unspecified; Z79.01 Long term (current) use of anticoagulants; Z82.0 Family history of epilepsy and other diseases of the nervous system; Z79.899 Other long term (current) drug therapy; Z86.711 Personal history of pulmonary embolism; Z68.32 Body mass index [BMI] 32.0-32.9, adult
CPT/HCPCS: 36415; 80053; 82962; 85025; 93005; 96360; 99285; G0378; J7030; J8540

== ENCOUNTER 2020-09-28 18:39 | Emergency (ER) | payer OTHER ==
[~2020-09-28] VITALS: Ht 172.7 cm; Wt 88.5 kg
[~2020-09-28 18:39] MED LIST changes: +ACYC-133 PO; +AMIO100T4 PO; +DOCU-144 PO; +FLUO15GE TP; +METO25TA3 PO
--- NOTE | 2020-09-28 18:45 | NUR ---
Placed in room 4 . Placed on cardiac exercise physiologist, blood pressure machine and pulse oximeter. To gown for exam. Side rails up. Report given to ABEL Obando.
[2020-09-28 18:49] VITALS: BP_SYST 155
--- NOTE | 2020-09-28 18:54 | NUR ---
Pt. bib BLS with c/o pain 09/27 at this time to lower back and hips, called 911 with excrutiating pain and was given fentanyl in the field, has chronic pain and states that this past month the pain has been unbearable.
--- NOTE | 2020-09-28 19:04 | NUR ---
report to pm shift
--- NOTE | 2020-09-28 19:05 | NUR ---
Received endorsement from day shift , AAOX4, breathing spontaneously at room air, not in distress noted. With IV cannula g20 at left ac on saline lock noted. Vital signs stable
--- NOTE | 2020-09-28 19:10 | NUR ---
Seen and examined by Dr. Price, ER Attending
[2020-09-28] MEDS ORDERED: AMIO100T4 PO (19:27)
[2020-09-28] MEDS ORDERED: METO25TA3 PO (19:27)
[2020-09-28] MEDS ORDERED: APIX5TAB PO (19:27)
[2020-09-28] MEDS ORDERED: OXYCODONE/ACETAMINOPHEN 5-325 TABLET PO ONE (19:30)
--- NOTE | 2020-09-28 19:49 | NUR ---
blood bank laboratory technician at bedside, bilateral hip xray done
--- NOTE | 2020-09-28 21:02 | NUR ---
Re-assesed by Dr. Price
--- NOTE | 2020-09-28 21:45 | NUR ---
Ambulatory to restroom, assisted well with wheelchair, voided freely
[2020-09-28] MEDS ORDERED: OXYC-128 PO (22:16)
--- NOTE | 2020-09-28 22:20 | NUR ---
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
[2020-09-28 22:50] VITALS: BP_SYST 132
--- NOTE | 2020-09-28 22:50 | NUR ---
Patient given written and verbal discharge instructions and verbalizes understanding. ER MD discussed with patient the results and treatment provided. Patient in stable condition. ID arm band removed. IV catheter removed intact and dressing applied, no active bleeding. Rx of Percoset given. Patient educated on pain management and to follow up with PMD. Pain Scale 3/10. Opportunity for questions provided and answered. Medication side effect fact sheet provided.
== END 2020-09-28 22:50 | disposition home or self-care (01) ==
LOC: SED 18:39
DX: C90.00 Multiple myeloma not having achieved remission (principal); M25.551 Pain in right hip; M25.552 Pain in left hip; R10.2 Pelvic and perineal pain; I10 Essential (primary) hypertension; I48.91 Unspecified atrial fibrillation; J44.9 Chronic obstructive pulmonary disease, unspecified; K21.9 Gastro-esophageal reflux disease without esophagitis; Z79.899 Other long term (current) drug therapy
CPT/HCPCS: 73521; 99283